=== PATIENT | male | born 1995 | race Caucasian/White ===

== ENCOUNTER 2019-11-03 02:11 | Inpatient (IN) | payer MEDICAID, OTHER ==
[~2019-11-03] VITALS: Ht 167.6 cm; Wt 141.5 kg
[2019-11-03 05:10] VITALS: BP 124/94
[2019-11-03] MEDS ORDERED: ZOLPIDEM TARTRATE 5 MG TABLET PO PRN (05:30)
[2019-11-03] MEDS ORDERED: HYDROCODONE/APAP 5/325MG 1 EACH TABLET PO PRN (05:30)
[2019-11-03] MEDS ORDERED: MAG HYDROX/AL HYDROX/SIMETH 30 ML UDC PO PRN (05:30)
[2019-11-03] MEDS ORDERED: MAGNESIUM HYDROXIDE 30 ML UDC PO PRN (05:30)
[2019-11-03] MEDS ORDERED: Z GUARD REMEDY 2 OZ OINT TP PRN (05:30)
[2019-11-03] MEDS ORDERED: ONDANSETRON HCL/PF 4 MG/2 ML VIAL IVP PRN (05:30)
[2019-11-03] MEDS ORDERED: ACETAMINOPHEN 325 MG TABLET PO PRN (05:30)
--- NOTE | 2019-11-03 06:03 | NUR ---
UNDERCOVER COPGM 0510 Received patient direct admit from [facility]. Admitted to Tele 311-2 due to R/O ACS under the service of TIMI Velez. Assisted patient to bed comfortably. Patient noted ambulatory independently with stable gait. Admission routine done. Patient's belongings inventory completed by the assigned TINWARE LITHOGRAPH PRESS OPERATOR. Skin assessment done, noted popped blisters x3 on the r foot, photo taken and documented. On tele monitor with NSR noted. Admission orders noted and carried out. Kept on bed clean dry and comfortable. Call light within easy reach. On fall and aspiration precautions. Will continue to monitor accordingly.
--- NOTE | 2019-11-03 06:33 | NUR ---
CHAINSTITCH HEMMER CLOSING NOTES Patient asleep on bed, easily awaken. On RA, no SOB/respiratory distress noted at this time. On tele monitor with NSR noted. Patient denies any discomfort at this time. Kept on bed clean, dry and comfortable. On fall and aspiration precautions. Call light within easy reach. Endorsed to the next shift.
[2019-11-03 08:00] VITALS: BP 140/89
--- NOTE | 2019-11-03 08:00 | NUR ---
SENIOR PAINTER AM NOTES Received patient alert and oriented x4.Denies any chest pain or distress. Ambulating independently with steady gait. With popped blisters x3 on the r foot, awaiting for wound consult .On tele monitor with NSR noted.Kept comfortable. Call light within easy reach. Will continue to monitor
[2019-11-03] MEDS ORDERED: ASPIRIN 81 MG TAB.CHEW PO SCH (09:00)
[2019-11-03 09:22] LABS: BASOPHILS % (AUTO) 0.3 % (0.0-2.0); EOSINOPHILS % (AUTO) 1.1 % (0.0-6.0); HEMATOCRIT 42 % (39-51); HEMOGLOBIN 14.2 g/dL (13.5-17.5); LYMPHOCYTES # (AUTO) 1.4 /CMM (0.8-4.8); LYMPHOCYTES % (AUTO) 25.6 % (20.0-44.0); MEAN CORPUSCULAR HGB CONC 34 g/dl (31.0-36.0); MEAN CORPUSCULAR VOLUME 90 fL (80-96); MONOCYTES # (AUTO) 0.5 /CMM (0.1-1.30); NEUTROPHILS # (AUTO) 3.6 /CMM (1.8-8.9); PLATELET COUNT (AUTO) 206 /CMM (150-450); RED BLOOD CELL COUNT(AUTO) 4.66 MIL/uL (4.5-6.0); WHITE BLOOD COUNT (AUTO) 5.6 K/uL (4.3-11.0)
[2019-11-03 09:28] LABS: CALCIUM, SERUM 9.4 mg/dL (8.5-10.1); CREATININE 0.8 mg/dL (0.6-1.3); POTASSIUM 4.4 mmol/L (3.5-5.1)
[2019-11-03 09:34] LABS: ALBUMIN 3.9 g/dL (3.4-5.0); BILIRUBIN,TOTAL 0.4 mg/dL (0.2-1.0); MAGNESIUM 2.2 mg/dL (1.8-2.4); PHOSPHORUS 3.3 mg/dL (2.5-4.9); TOTAL PROTEIN, SERUM 7.6 g/dL (6.4-8.2)
[2019-11-03 09:44] LABS: THYROID STIMULATING HORMONE 3.082 uIU/mL (0.358-3.74)
--- NOTE | 2019-11-03 10:27 | NUR ---
WOUND CARE CONSULT: PT FOUND SITTING IN CHAIR AND SOAKING HIS FEET IN BASIN OF WATER. PT DECLINED SKIN ASSESSMENT AT THIS TIME AND ASKING FOR NAIL CLIPPERS. PT AGREED TO SEE DPM FOR FEET AND STATES HE HAS DIABETES TYPE THREE. DR HARE NOTIFIED OF DPM CONSULT REQUEST. PT IS AMBULATORY AND CONTINENT. WILL SEE PRN. CURRENT VICKI SCORE IS 20.
[2019-11-03] MEDS ORDERED: ENOXAPARIN SODIUM 40 MG/0.4 ML DISP.SYRIN SQ SCH (10:48)
--- NOTE | 2019-11-03 11:05 | NUR ---
Social service consult requested by for homelessness. Per notes, pt is a 24 years old male brought by the ambulance from another hospital in [place] with complaint of chest pain/heaviness, non-radiating, sharp 7/10 started last night around 7 pm, did not take any medication and went to emergency department in [facility] in [place]. Patient has a history of asthma, which he was told by a doctor based on his BMI. POKER DEALER met with the pt. bedside. Pt. is alert and oriented x 4. Pt. is slow to answer questions asked of him. Pt. appears overweight for his age. Pt. states he came to [place] from [place]. Per pt, he resides with his mother in [place]. When asked why did he come to [place], pt shrugs his shooulder and doesn't answer. Pt. has no friends or family in [place]. Pt has no source of income. Pt denied smoking and drug use, admitted he drinks alcohol 16 ounces of beer per day (last drink 11/02/2019). Pt has a psychiatric diagnosis of Schizophrenia and Bipolar. Pt. takes Remeron for Schizophrenia and Risperdal for sleep. Pt. denies suicidal and homicidal ideations and visual/auditory hallucinations at this time. Pt. is willing to go to the winter care home upon discharge. [facility] provided pt. with the following resources: [facility] 1824-1707 [place] [facility], [facility] located at [address] [place] [address] ; . [facility], [address] ; [facility], [address] [facility] ; [facility] Homeless Resource Directory which includes food stamps, transitional housing, showers and hot meals etc; Mental Health clinics such as [facility] ; [facility] ; Health clinics;[facility] and Alcohol treatment centers such as [facility], ; [facility] Substance Abuse Hotline and [facility] . Pt. will be provided with a TAP card upon discharge. Pt. to sign Homeless Patient Waiver Form in chart at time of discharge. . No other social service needs are requested at this time. POKER DEALER updated LEXII Diggs and pt's RN Daiana regarding pt's disposition.
[2019-11-03] MEDS ORDERED: RISP0.2515 PO (11:54)
[2019-11-03] MEDS ORDERED: MIRT-73 PO (11:54)
[2019-11-03 16:00] VITALS: BP 123/64
[2019-11-03] MEDS ORDERED: risperiDONE 1 MG TABLET PO SCH (17:00)
[2019-11-03] MEDS ORDERED: POVIDONE-IODINE OINT 28.4 GM TUBE TP SCH (17:00)
[2019-11-03 20:00] VITALS: BP 132/81
--- NOTE | 2019-11-03 20:00 | NUR ---
TELE/RN OPENING NOTES RECEIVED PATIENT AWAKE, ALERT X3, ABLE TO VERBALIZE NEEDS, REQUESTED FOR SOME FOOD FOR SNACK, GIVEN SOME CRACKERS. RESPIRATIONS EVEN AND UNLABORED, ON TELE AT [address] WHEN WALKING AND RESTING AT [address] [facility] AND ABLE TO FOLLOW SIMPLE INSTRUCTIONS. RESPIRATIONS BED LOCKED, CALL LIGHTS WITHIN REACH, NO PAIN REPORTED AND OBSERVED, PROVIDED SNACKS. WILL MONITOR.
[2019-11-03] MEDS ORDERED: ATORVASTATIN 10 MG TABLET PO SCH (22:00)
[2019-11-03] MEDS ORDERED: MIRTAZAPINE 15 MG TABLET PO SCH (22:00)
[2019-11-04] VITALS: BP 133/90
[2019-11-04 00:41] VITALS: BP 133/90
[2019-11-04 04:00] VITALS: BP_SYST 130; BP_SYST 81; BP_DIAS 81
--- NOTE | 2019-11-04 06:18 | NUR ---
TELE/RN NOTES PATIENT REFUSE TO HAVE BLOOD DRAW AT THIS. TO COME BACK AFTER.
--- NOTE | 2019-11-04 06:35 | NUR ---
311-T2 PATIENT ABLE TO SLEEP DURING THE NIGHT. ALL NEEDS ATTTENDED, CALL LIGHTS WITHIN REACHED, BED LOCKED. RESPIRATIONS EVEN AND UNLABORED. SKIN INTACT AND DRY. MONITORED FOR ANY CHANGES WILL ENDORSE TO AM RN FOR JESSICA. ON SINUS RYTHM.
--- NOTE | 2019-11-04 07:00 | NUR ---
TELE/RN NOTES PATIENT IS HOMELESS, SHOWIN S/S OF BEHAVIOR, AGITATION, REFUSAL TO HAVE MEDICAL TREATMENT AND REQUESTING ADAMANTLY TO LEAVE AND SIGNED MD SHARMIN AWARE, UNABLE TO GET CRISIS TEAM BY [facility] AND CHARGE NURSE AWARE , WILL BE GIVEN A TAP CARD TO LEAVE AND ASSISTED TO LOBBY. WILL MONITOR, SECURITY ASSISTED TO LRT HIM LEAVE . NO BEHAVIOR THAT CAN HARM BUT AGGRESIVELY SCREAMING LOUD.
== END 2019-11-04 07:10 | disposition left against medical advice (07) | DRG 243 ==
LOC: MED 05:01 → TELE 05:50
PROVIDERS: ADMIT Nurse Practitioner Acute Care; ATTEND Nurse Practitioner Acute Care
DX: K21.9 Gastro-esophageal reflux disease without esophagitis (principal); E66.01 Morbid (severe) obesity due to excess calories; F20.9 Schizophrenia, unspecified; E11.9 Type 2 diabetes mellitus without complications; F19.90 Other psychoactive substance use, unspecified, uncomplicated; J45.909 Unspecified asthma, uncomplicated; F31.9 Bipolar disorder, unspecified; Z68.43 Body mass index [BMI] 50.0-59.9, adult; F17.200 Nicotine dependence, unspecified, uncomplicated; F10.10 Alcohol abuse, uncomplicated; Z83.3 Family history of diabetes mellitus; Z82.49 Family history of ischemic heart disease and other diseases of the circulatory system; S90.822A Blister (nonthermal), left foot, initial encounter; S90.821A Blister (nonthermal), right foot, initial encounter; Z59.0 Homelessness
CPT/HCPCS: 36415; 71045-TC; 80053-TC; 80061-TC; 83735-TC; 84100-TC; 84439-TC; 84443-TC; 84484-TC; 85025-TC; 87081-TC; 93307-TC; G0378; J1650